=== PATIENT | male | born 1975 | race Caucasian/White ===

== ENCOUNTER 2018-03-27 14:35 | Emergency (ER) | payer SELFPAY ==
--- NOTE | 2018-04-11 07:14 | ER Physician Documentation ---
DATE OF SERVICE: 03/27/2018 This is a 42-year-old male who presented to the ER with a complaint of low back pain. HISTORY OF PRESENT ILLNESS: The patient presented with a complaint of low back pain with radiation down to posterior thigh areas. The patient stated he had a low back pain history. He had lifted a 35-pound object while at work this morning and no other trauma and no other complaints. He denies any history of bowel or bladder incontinence. 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 PAST MEDICAL HISTORY: remarkable for the fact that the patient has been followed in chronic pain clinic in the past. He has had low back pain in the past. According to his partner, he has had a problem with drinking in the past as well. The patient denies any prior spinals or epidurals being given to him for his chronic low back pain problem. PAST SURGICAL HISTORY: Unremarkable. REVIEW OF SYSTEMS: Positive for low back pain. Review of systems negative for paresthesias, nausea, vomiting, diarrhea, constipation. Denies bowel or bladder incontinence. PHYSICAL EXAMINATION: GENERAL: The patient is a small male in no apparent distress. LUNGS: Clear to auscultation bilaterally. COR: Regular rate and rhythm. MUSCULOSKELETAL: Negative straight leg raise bilaterally. Minimal muscle spasm present in the paralumbar area. No deformity present. No scoliosis present. NEUROLOGICAL: normal sensation and motor throughout. Negative tinel's. No paresthesias present. The patient was given a shot of Toradol 60 mg IM and Solu-Medrol 125 mg IM. He refused any x-rays. He said THAT he did not need them since he has had x-rays in the past. The patient received quite a bit of relief from that after receiving both injections. A CURES report was run on him which was negative. He was given prescriptions to take as an outpatient. ASSESSMENT: Low back pain. Please follow up with the primary care doctor. He was given a CD with the images on it to take to his primary care doctor just in case this has continued. I also had him write up a first report which I put him on restrictions of not lifting anything greater than 5 pounds, not bending or twisting at the waist and I told him that he had to be cleared of these restrictions by someone who would examine him for his back. JOB# [id number] THERESE
== END 2018-03-27 15:30 | disposition home or self-care (01) ==
LOC: ER 14:35
DX: M54.5 Low back pain (principal); G89.29 Other chronic pain
CPT/HCPCS: 99284; 96372 ×2; J1885; J2930; Z7502

== ENCOUNTER 2018-09-27 15:46 | Emergency (ER) | payer MEDICAID ==
--- NOTE | 2018-09-27 16:17 | ED Physician Chart ---
ED Chief Complaint/HPI - Patient Information Date Seen:: 09/27/18 Time Seen:: 16:11 Chief Complaint:: RT FOOT ANKLE PAIN History of Present Illness:: 42 YR OLD MALE WHO MISSTEPPED OFF THE SIDEWALK FEW DAYS AGO WITH PAIN SWELLING RT FOOT AND ANKLE NO HEAD OR NECK TRAUMA NO NV HEADACHE OR DIZZINESS Allergies:: Allergies Allergy/AdvReac Type Severity Reaction Status Date / Time No Known Allergies Allergy Verified 09/27/18 16:10 ED Review of Systems - Review of Systems General/Constitutional: No fever, No chills, No weight loss, No weakness, No diaphoresis, No edema, No loss of appetite Skin: Other (SWELLING RT ANKLE) Head: No headache, No light-headedness Eyes: No loss of vision, No pain, No diplopia ENT: No earache, No nasal drainage, No sore throat, No tinnitus Neck: No neck pain, No swelling, No thyromegaly, No stiffness, No mass noted Cardio Vascular: No chest pain, No palpitations, No PND, No orthopnea, No edema Pulmonary: No SOB, No cough, No sputum, No wheezing GI: No nausea, No vomiting, No diarrhea, No pain, No melena, No hematochezia, No constipation, No hematemesis G/U: No dysuria, No frequency, No hematuria Musculoskeletal: Bone or joint pain, Muscle pain, Other (SWELLING RT ANKLE FOOT NO MAJOR DEFORMITY NV GOOD) Endocrine: No polyuria, No polydipsia Psychiatric: No prior psych history, No depression, No anxiety, No suicidal ideation Hematopoietic: No bruising, No lymphadenopathy Allergic/Immuno: No urticaria, No angioedema Neurological: No syncope, No focal symptoms, No weakness, No paresthesia, No headache, No seizure, No dizziness, No confusion, No vertigo ED Past Medical History - Past Medical History Past Medical History: No significant medical hx Family Medical History - Family Member Father History Unknown: Yes Ethnicity: Non- Living Status: Still Living Hx Family Seizures: Yes ED Physical Exam - Physical Examination General/Constitutional: Awake, Well-developed, well-nourished, Alert, No distress, GCS 15, Non-toxic appearing, Ambulatory Head: Atraumatic Eyes: Lids, conjuctiva normal, PERRL, EOMI Skin: No rash, Well hydrated, No lymphadenopathy Other Skin comments:: RT LATERAL ANKLE SWELLING ENMT: External ears, nose nl, Nasal exam nl, Lips, teeth, gums nl Neck: Nontender, Full ROM w/o pain, No JVD, No nuchal rigidity, No bruit, No mass, No stridor Respiratory: Nl effort/Exclusion, Clear to Auscultation, No Wheeze/Rhonchi/Rales Cardio Vascular: RRR, No murmur, gallop, rubs, NL S1 S2 GI: No tenderness/rebounding/guarding, No organomegaly, No hernia, Normal BS's, Nondistended, No mass/bruits, No McBurney tenderness : No CVA tenderness Extremities: Normal digits & nails Other Extremities comments:: EDEMA PAINFUL ROM Neuro/Psych: Alert/oriented, DTR's symmetric, Normal sensory exam, Normal motor strength, Judgement/insight normal, Mood normal, Normal gait, No focal deficits Misc: Normal back, No paraspinal tenderness ED Assessment - Assessment General Assessment: RT ANKLE CONTUSION ED Septic Shock - . Is Septic Shock (SBP<90, OR Lactate>4 mmol\L) present?: No ED Reassessment (Disposition) - Reassessment Reassessment:: RT ANKLE CONTUSION - Diagnosis Diagnosis:: ABOVE - Patient Disposition Discharge/Transfer:: Home Condition at Disposition:: Stable
--- NOTE | 2018-09-28 08:40 | Diagnostic Imaging Report ---
Right ankle (3 views) HISTORY: Pain, trauma Soft tissue swelling over the lateral aspect of the ankle. Mild irregularity noted along the medial malleolus which appears chronic. No definite acute fractures. Joint spaces appear normal. IMPRESSION: 1. No definite acute bony abnormalities. In the presence of recent trauma and persistent symptoms, a repeat radiograph in 5-7 days may be helpful for detection of a subtle or occult fracture.
--- NOTE | 2018-09-28 08:54 | Diagnostic Imaging Report ---
Right foot (3 views) HISTORY: Pain No acute bony abnormalities. No fractures. Joint spaces appear normal. IMPRESSION: 1. No acute bony abnormalities In the presence of recent trauma and persistent symptoms, a repeat radiograph in 5-7 days may be helpful for detection of a subtle or occult fracture.
== END 2018-09-27 16:56 | disposition home or self-care (01) ==
LOC: ER 15:46
DX: S90.01XA Contusion of right ankle, initial encounter (principal); X58.XXXA Exposure to other specified factors, initial encounter; Y93.89 Activity, other specified; Y92.89 Other specified places as the place of occurrence of the external cause; Y99.8 Other external cause status
CPT/HCPCS: 73600-TC-RT; 73630-TC-RT; Z7502; Z7610

== ENCOUNTER 2018-09-29 13:47 | Emergency (ER) | payer MEDICAID ==
--- NOTE | 2018-09-29 15:55 | ED Physician Chart ---
ED Chief Complaint/HPI - Patient Information Date Seen:: 09/29/18 Time Seen:: 14:00 Chief Complaint:: Right Ankle Pain History of Present Illness:: onset x 3 days of dull, intermittent, MS type right ankle pain and right foot pain after an injury 3 days ago; pt had negative right ankle and right foot X- Rays but continued to bear weight and not use Crutches; pt denies any new injuries, LOC, ALOC, AMS, H/As, neck pain, visual or gait changes, weakness, dizziness, paresthesias, vertigo, SIs, cough, C/P, SOB, Abd. Pain, or urinary s/ s; pt's last tetanus shot: < 5 years; UTD Allergies:: Allergies Allergy/AdvReac Type Severity Reaction Status Date / Time No Known Allergies Allergy Verified 09/27/18 16:10 Vitals:: Vital Signs - 8 hr 09/29/18 14:05 Temp 98.9 F O2 Sat % 100 Historian:: Patient Review:: Nurse's Note Reviewed, Old Chart Reviewed ED Review of Systems - Review of Systems General/Constitutional: No fever, No chills, No weight loss, No weakness, No diaphoresis, No edema, No loss of appetite Skin: No skin lesions, No rash, No bruising Head: No headache, No light-headedness Eyes: No loss of vision, No pain, No diplopia ENT: No earache, No nasal drainage, No sore throat, No tinnitus Neck: No neck pain, No swelling, No thyromegaly, No stiffness, No mass noted Cardio Vascular: No chest pain, No palpitations, No PND, No orthopnea, No edema Pulmonary: No SOB, No cough, No sputum, No wheezing GI: No nausea, No vomiting, No diarrhea, No pain, No melena, No hematochezia, No constipation, No hematemesis G/U: No dysuria, No frequency, No hematuria, No nacturia Musculoskeletal: No bone or joint pain, No back pain, No muscle pain Endocrine: No polyuria, No polydipsia Psychiatric: Prior psych history, Depression, No anxiety, No suicidal ideation, No homicidal ideation, No auditory hallucination, No visual hallucination Hematopoietic: No bruising, No lymphadenopathy Allergic/Immuno: No urticaria, No angioedema Neurological: No syncope, No focal symptoms, No weakness, No paresthesia, No headache, Seizure, No dizziness, No confusion, No vertigo ED Past Medical History - Past Medical History Obtainable: Yes Past Medical History: Seizures Family History: None Social History: Non Smoker, No Alcohol, No Drug Use, Single, Care Facility Surgical History: None Psychiatricy History: Depression Medication: Reviewed Family Medical History - Family Member Father History Unknown: Yes Ethnicity: Non- Living Status: Still Living Hx Family Seizures: Yes ED Physical Exam - Physical Examination General/Constitutional: Awake, Well-developed, well-nourished, Alert, No distress, GCS 15, Non-toxic appearing, Ambulatory Head: Atraumatic Eyes: Lids, conjuctiva normal, PERRL, EOMI Skin: Nl inspection, No rash, No skin lesions, No ecchymosis, Well hydrated, No lymphadenopathy ENMT: External ears, nose nl, TM canals nl, Nasal exam nl, Lips, teeth, gums nl , Oropharynx nl, Tonsils nl Neck: Nontender, Full ROM w/o pain, No JVD, No nuchal rigidity, No bruit, No mass, No stridor Other Neck comments:: supple; no meningeal signs; no cervical tenderness; no bruits Respiratory: Nl effort/Exclusion, Clear to Auscultation, No Wheeze/Rhonchi/Rales Cardio Vascular: RRR, No murmur, gallop, rubs, NL S1 S2, Carotid/Femoral/Distal pulses equal bilaterally GI: No tenderness/rebounding/guarding, No organomegaly, No hernia, Normal BS's, Nondistended, No mass/bruits, No McBurney tenderness Other GI comments:: no pulsatile masses : No CVA tenderness Extremities: No tenderness or effusion, Full ROM, normal strength in all extremities, No edema, Normal digits & nails Other Extremities comments:: + Right Ankle and Right Foot Tenderness upon all PROMs; no loss of ROMs; full active ROMs; no septic joints; no cellulitis; no ligament instability; good motor, tendon, and sensory functions; Gait: WNL; DTRs: 2+ bilaterally; good NV functions Neuro/Psych: Alert/oriented, DTR's symmetric, Normal sensory exam, Normal motor strength, Judgement/insight normal, Mood normal, Normal gait, No focal deficits Other Neuro/Psych comments:: no focal signs; MSE: WNL; no SIs Misc: Normal back, No paraspinal tenderness ED Labs/Radiology/EKG Results - Radiology Results Comments:: X-Rays on 09/27/18 of Right Ankle and Right Foot were Negative; pt deferred X- Rays Today ED Assessment - Procedures Procedures:: Splint applied to Right Ankle and Right Foot Informed Consent: Procedure/risk/benefits explained by MD: Yes Splint Care: Splint applied Post Procedure/Splint Exam: No Active Bleeding, Full Range of Motion, Neuro/ Vascular Exam Comments:: pt has his own Crutches; good NV functions ED Septic Shock - . Is Septic Shock (SBP<90, OR Lactate>4 mmol\L) present?: No - <6hrs of presentation: Vital Signs: Vital Signs - 8 hr 09/29/18 14:05 Temp 98.9 F O2 Sat % 100 ED Reassessment (Disposition) - Reassessment Reassessment:: pt is asymptomatic upon discharge Reassessment Condition:: Improved - Diagnosis Diagnosis:: Right Ankle Sprains and Strains; Right Foot Sprains and Strains; Right Ankle/ Foot Pain; Right Ankle/Foot Injury - Aftercare/Follow up Instructions Aftercare/Follow-Up Instructions:: Counseled pt regarding lab results/diagnosis & need follow up, Refer to Discharge Instructions, Counseled pt & family regarding lab results/diagnosis & need follow up Medication Prescribed:: pt to Wear Splint to Right Ankle and Right Foot and to use Crutches until F/U with Orthopedist; Apply Ice/Heat to affected areas; Motrin 400mg po tid prn pain - Patient Disposition Discharge/Transfer:: Home Condition at Disposition:: Stable, Improved (RTER prn if existing s/s reoccur and/or get worse and/or any other new s/s occur; X-Rays Instructions; ACIs given for all above Dx; Refer to Orthopedist/Assistant Paralegal AKIN; F/U with PMD in one day or prn; RTER prn if concerned)
== END 2018-09-29 15:01 | disposition home or self-care (01) ==
LOC: ER 13:47
DX: S93.401A Sprain of unspecified ligament of right ankle, initial encounter (principal); S96.911A Strain of unspecified muscle and tendon at ankle and foot level, right foot, initial encounter; S93.601A Unspecified sprain of right foot, initial encounter; F32.9 Major depressive disorder, single episode, unspecified; X58.XXXA Exposure to other specified factors, initial encounter; Y93.89 Activity, other specified; Y92.89 Other specified places as the place of occurrence of the external cause; Y99.8 Other external cause status
CPT/HCPCS: Z7502